=== PATIENT | female | born 1980 | race African-American/Black ===

== ENCOUNTER 2020-06-29 18:54 | Inpatient (IN) | payer OTHER ==
[2020-06-29 20:07] LABS: WHITE BLOOD COUNT 5.5 K/mm3 (4.0-10.8)
[2020-06-29 20:12] LABS: MCHC 29.1 g/dl (32.0-36.0); MEAN PLT VOLUME 7.8 fl (7.5-11.1); PLATELET COUNT 690 K/MM3 (134-434); RBC 3.43 M/mm3 (3.60-5.2); RDW 25.7 % (11.6-15.6)
[2020-06-29 20:13] LABS: MCH 17.2 pg (25.7-33.7)
[2020-06-29 20:16] LABS: ALBUMIN 3.6 g/dl (3.4-5.0); BILIRUBIN,TOTAL 0.5 mg/dl (0.2-1); CALCIUM 8.9 mg/dl (8.5-10); CREATININE 0.5 mg/dl (0.55-1.3); POTASSIUM 4.1 mmol/L (3.5-5.1); TOT PROT 7.4 g/dl (6.4-8.2)
[2020-06-29 20:18] LABS: HEMOGLOBIN 5.9 GM/dl (10.7-15.3)
[2020-06-29 20:19] LABS: HEMATOCRIT 20.3 % (32.4-45.2)
--- NOTE | 2020-06-29 20:25 | PDOC ---
Documentation entered by James Tao SCRIBE, acting as scribe for Bianca Finley MD. Bianca Finley MD: This documentation has been prepared by the sharifae, James Tao SCRIBE, under my direction and personally reviewed by me in its entirety. I confirm that the documentation accurately reflects all work, treatment, procedures, and medical decision making performed by me. History of Present Illness - General Chief Complaint: Blood Transfusion Stated Complaint: BLOOD TRANSFUSION History Source: Patient Exam Limitations: No Limitations - History of Present Illness Initial Comments: 06/29/20 19:35 The patient is a 40 year old female with a significant past medical history of anemia who presents to the ED sent from her PCP (Dr. Gonzalez) for evaluation of laboratory findings including 6.1 hemoglobin. The patient notes going to her PCP for her annual physical on when her blood was drawn. Prior to , her most recent annual physical was two years ago. The patient reports associated fatigue, shortness of breath, vertigo, nausea, and ringing ears after walking one block which varies from her baseline. The patient is currently asymptomatic. The patient denies chest pain and shortness of breath. Denies fever, chills an d/or any GI symptoms. Denies any symptoms. Denies any other symptoms. PAST MEDICAL HISTORY: anemia PAST SURGICAL HISTORY: no significant history FAMILY HISTORY: no pertinent history SOCIAL HISTORY: Pt lives with family and is employed. MEDICATIONS: reviewed ALLERGIES: As per nursing notes PCP: Dr. Gonzalez ([facility]) Review of Systems General: +fatigue No fevers or chills, no weakness, no weight loss HEENT: No change in vision. No sore throat. No ear pain CardioVascular: No chest pain or shortness of breath Respiratory: +dyspnea on exertion No cough, or wheezing. Gastrointestinal: +nausea No vomiting, diarrhea or constipation, No rectal bleeding Genitourinary: No dysuria, hematuria, or frequency Musculoskeletal: No joint or muscle pain or swelling Neurologic: +vertigo, ringing ears No headache or loss of consciousness Psychiatric: nor depression Skin: No rashes or easy bruising Endocrine: no increased thirst or abnormal weight change Allergic: no skin or latex allergy All other systems reviewed and normal Physical Exam General: Well-nourished well-developed individual, no acute distress HEENT: Throat: Normal, tonsils normal, no erythema or exudate Neck: Supple, no meningeal signs, no lymphadenopathy Eyes: Pupils equal reactive and round, extraocular motion intact Chest: Nontender to palpation Cardiac: S1-S2 normal, regular rate and rhythm, no murmurs rubs or gallops Respiratory: Lungs clear to auscultation bilateral Abdomen: Soft, nondistended, normal bowel sounds, nontender to palpation diffusely Extremities: Warm, dry, no cyanosis, clubbing, or edema Skin: No rashes Neuro: Alert and oriented x3, nonfocal exam, grossly intact, normal gait Psych: Normal mood and affect 06/29/20 20:23 Assessment and plan: This is a 40-year-old female comes in complaining of feeling fatigue and dyspnea with exertion. Patient went to her PMD and was told that she had a hemoglobin of 6. Here in the emergency room patient's hemoglobin is 5.9. Patient will be admitted for transfusion and further evaluation and work-up of her anemia. Past History - Medical History Allergies/Adverse Reactions: Allergies Allergy/AdvReac Type Severity Reaction Status Date / Time No Known Allergies Allergy Verified 06/29/20 19:05 Home Medications: Ambulatory Orders Dextroamphetamine/Amphetamine [Adderall 10 mg Tablet] 20 mg PO DAILY 06/29/20 COPD: No Disorders: Yes (FIBROID) - Reproductive History Is Patient Now?: No - Psycho-Social/Smoking History Smoking History: Never smoked - Substance Abuse Hx (Audit-C & DAST Scrn) How often the patient has a drink containing alcohol: 2-4 times / month How often the patient has six or more drinks on one occasion: Never Score: In Men: 4 or > Positive; In Women: 3 or > Positive: 2 Screen Result (Pos requires Nsg. Audit-10AR): Negative In the last yr the pt used illegal drug/Rx for NonMed reason: No Score: Yes response is considered Positive: 0 Screen Result (Positive result requires Nsg. DAST-10): Negative *Physical Exam - Vital Signs Last Vital Signs Temp Pulse Resp BP Pulse Ox 98.8 F 73 15 103/59 L 100 06/29/20 18:57 06/29/20 18:57 06/29/20 18:57 06/29/20 18:57 06/29/20 18:57 ED Treatment Course - LABORATORY CBC & Chemistry Diagram: 06/29/20 19:50 06/29/20 19:50 Discharge - Discharge Information Problems reviewed: Yes Clinical Impression/Diagnosis: Symptomatic anemia Condition: Good Disposition: HOME - Admission Yes - Follow up/Referral - Patient Discharge Instructions - Post Discharge Activity
[2020-06-29 20:35] LABS: ANISOCYTOSIS 3+; OVALOCYTE 1+
[2020-06-29 20:36] LABS: PLATELET ESTIMATE INCREASED
--- NOTE | 2020-06-29 20:39 | HP ---
CHIEF COMPLAINT: fatigue, forgetfullness, shortness of breath, dizziness and chest pain PCP: Dr. Gonzalez ([facility]) HISTORY OF PRESENT ILLNESS: 40 year old female with a past medical history of anemia and heavy menstrual bleeding who presents to the ED sent from her PCP (Dr. Gonzalez) for evaluation of laboratory findings with a hemoglobin of 6.1. Patient went to her PCP for her annual physical on when her blood was drawn. She reports having heavy periods. She denies having hematuria or rectal bleeding . Patient reports associated fatigue, shortness of breath, vertigo, nausea, and ringing ears after walking one block which varies from her baseline. She denies weight loss or syncopy. She reports she has not been taking iron tablets on a daily basis as instructed to. ER course labs notable for: hemoglobin 5.9, hematocrit 20.3, MCV 59, MCH 17.2, RDW 25.7 ,and platelets 690 Recent Travel: no PAST MEDICAL HISTORY: anemia PAST SURGICAL HISTORY: none Social History: Smoking:no Alcohol:no Drugs: no Family History : noncontributory Allergies No Known Allergies Allergy (Verified 06/29/20 19:05) HOME MEDICATIONS: Home Medications Medication Instructions Recorded Dextroamphetamine/Amphetamine 20 mg PO DAILY 06/29/20 [Adderall 10 mg Tablet] REVIEW OF SYSTEMS CONSTITUTIONAL: Absent: fever, chills, diaphoresis, fatgue, generalized weakness, malaise, loss of appetite, weight gain HEENT: Absent: rhinorrhea, nasal congestion, throat pain, throat swelling, difficulty swallowing, mouth swelling, ear pain, eye pain, visual changes CARDIOVASCULAR: Absent: chest pain, syncope, palpitations, irregular heart rate, lightheadedness, peripheral edema RESPIRATORY: Absent: cough, shortness of breath, dyspnea with exertion, orthopnea, wheezing, stridor, hemoptysis GASTROINTESTINAL: Absent: abdominal pain, abdominal distension, nausea, vomiting, diarrhea, constipation, melena, hematochezia GENITOURINARY: Absent: dysuria, frequency, urgency, hesitancy, hematuria, flank pain, genital pain MUSCULOSKELETAL: Absent: myalgia, arthralgia, joint swelling, back pain, neck pain SKIN: Absent: rash, itching, pallor HEMATOLOGIC/IMMUNOLOGIC: Absent: easy bleeding, easy bruising, lymphadenopathy, frequent infections, heavy periods ENDOCRINE: Absent: unexplained weight gain, unexplained weight loss, heat intolerance, cold intolerance NEUROLOGIC: Absent: headache, focal weakness or paresthesias, dizziness, unsteady gait, seizure, mental status changes, bladder or bowel incontinence PSYCHIATRIC: Absent: anxiety, depression, suicidal or homicidal ideation, hallucinations. PHYSICAL EXAMINATION Vital Signs - 24 hr 06/29/20 18:57 Temperature 98.8 F Pulse Rate 73 Respiratory 15 Rate Blood Pressure 103/59 L O2 Sat by Pulse 100 Oximetry (%) General no acute distress Vital signs reviewed afebrile bp stable Neuro no focal deficits Neck no JVD Lungs CTA nonlabored breathing effort no rales no wheezing Heart s1s2 rate regular and normal no murmurs auscultated Abdomen soft nontender nondistended Extremities warm to touch no pitting edema no cyanosis Mood calm Laboratory Results - last 24 hr 06/29/20 06/29/20 06/29/20 19:50 19:50 19:50 WBC 5.5 RBC 3.43 L Hgb 5.9 L* Hct 20.3 L MCV 59.0 L MCH 17.2 L MCHC 29.1 L RDW 25.7 H Plt Count 690 H MPV 7.8 Neutrophils % No Result Required. Neutrophils % (Manual) 59.0 Band Neutrophils % 1.0 Lymphocytes % No Result Required. Lymphocytes % (Manual) 32.0 Monocytes % (Manual) 4 Eosinophils % (Manual) 4.0 Hypochromia 3+ Platelet Estimate Increased Platelet Comment Moderate large plate Anisocytosis 3+ Microcytosis 3+ Ovalocytes 1+ Schistocytes 2+ Sodium 135 L Potassium 4.1 Chloride 103 Carbon Dioxide 23 Anion Gap 9 BUN 18.0 Creatinine 0.5 L Est GFR (CKD-EPI)AfAm 140.31 Est GFR (CKD-EPI)NonAf 121.06 Random Glucose 103 Calcium 8.9 Total Bilirubin 0.5 AST 18 ALT 12 L Alkaline Phosphatase 34 L Creatine Kinase 41 Troponin I < 0.03 Total Protein 7.4 Albumin 3.6 Crossmatch 06/29/20 19:50 WBC RBC Hgb Hct MCV MCH MCHC RDW Plt Count MPV Neutrophils % Neutrophils % (Manual) Band Neutrophils % Lymphocytes % Lymphocytes % (Manual) Monocytes % (Manual) Eosinophils % (Manual) Hypochromia Platelet Estimate Platelet Comment Anisocytosis Microcytosis Ovalocytes Schistocytes Sodium Potassium Chloride Carbon Dioxide Anion Gap BUN Creatinine Est GFR (CKD-EPI)AfAm Est GFR (CKD-EPI)NonAf Random Glucose Calcium Total Bilirubin AST ALT Alkaline Phosphatase Creatine Kinase Troponin I Total Protein Albumin Crossmatch See Detail ASSESSMENT/PLAN: In summary this is a 40 year old female with a past medical history of anemia and heavy menstrual bleeding who presented from PCP office for symptomatic anemia with shortness of breath, fatigue and chest pain. She was found to have severe anemia and thrombocytosis.She is being admitted to the Medicine service for further medical management and evaluation. #1 Symptomatic Anemia/Thrombocytosis hemoglobin 5.9, hematocrit 20.3, MCV 59, MCH 17.2, RDW 25.7 ,and platelets 690 blood pressure ranges low normal at baseline receiving 2 Units PRBC's repeat CBC in am check iron studies, B12 and folate check nazia guaiac c/w ferrous sulfate avoid asa/NSAID's Hematology consulted - Dr. Rahman #2 R/O COVID low risk follow up on COVID test sent 06/29 FEN no IV fluids indicated, receiving blood products BMP daily regular diet DVT Prophylaxis low risk Visit type - Emergency Visit Emergency Visit: Yes ED Registration Date: 06/29/20 Care time: The patient presented to the Emergency Department on the above date and was hospitalized for further evaluation of their emergent condition. - New Patient This patient is new to me today: Yes Date on this admission: 06/30/20 - Critical Care Critical Care patient: No
[2020-06-29 22:52] VITALS: BMI 22.5
[2020-06-30 08:16] LABS: CALCIUM 8.4 mg/dl (8.5-10); CREATININE 0.5 mg/dl (0.55-1.3); MAGNESIUM 2.1 mg/dL (1.8-2.4); POTASSIUM 3.8 mmol/L (3.5-5.1)
[2020-06-30 08:20] LABS: HEMATOCRIT 25.1 % (32.4-45.2); MCHC 29.4 g/dl (32.0-36.0); MEAN PLT VOLUME 8.8 fl (7.5-11.1); PLATELET COUNT 627 K/MM3 (134-434); RBC 3.86 M/mm3 (3.60-5.2); RDW 32.2 % (11.6-15.6); WHITE BLOOD COUNT 3.8 K/mm3 (4.0-10.8)
[2020-06-30 08:52] LABS: MCH 19.1 pg (25.7-33.7)
[2020-06-30 08:54] LABS: HEMOGLOBIN 7.4 GM/dl (10.7-15.3)
[2020-06-30] MEDS: FERROUS SO4 325 MG TABLET (FP) PO SCH ×2 (09:34→22:44)
--- NOTE | 2020-06-30 09:55 | PN ---
Physical Exam: SUBJECTIVE: Patient seen and examined at bedside. Obtained following additional PMH: ; has been followed x 2 years at [facility], Dr. Ivone Hernández, for fibroid(s); has surgical consult scheduled for 07/02; LMP 05/30/20 OBJECTIVE: Vital Signs Period Temp Pulse Resp BP Sys/Thao Pulse Ox Last 24 Hr 98.3 F-98.9 F 73-95 15-18 101-115/59-75 99-100 GENERAL: The patient is awake, alert, and fully oriented, in no acute distress. HEAD: Normal with no signs of trauma. EYES: PERRL, extraocular movements intact, sclera anicteric, conjunctiva clear. No ptosis. LUNGS: Breath sounds equal, clear to auscultation bilaterally, no wheezes, no crackles, no accessory muscle use. HEART: Regular rate and rhythm, S1, S2 without murmur, rub or gallop. ABDOMEN: Large protruding mass left side of abdomen g~14cm in diameter, not tender EXTREMITIES: 2+ pulses, warm, well-perfused, no edema. NEUROLOGICAL: Cranial nerves II through XII grossly intact. Normal speech, self- positions easily Laboratory Results - last 24 hr 06/29/20 06/29/20 06/29/20 19:50 19:50 19:50 WBC 5.5 RBC 3.43 L Hgb 5.9 L* Hct 20.3 L MCV 59.0 L MCH 17.2 L MCHC 29.1 L RDW 25.7 H Plt Count 690 H MPV 7.8 Neutrophils % No Result Required. Neutrophils % (Manual) 59.0 Band Neutrophils % 1.0 Lymphocytes % No Result Required. Lymphocytes % (Manual) 32.0 Monocytes % (Manual) 4 Eosinophils % (Manual) 4.0 Hypochromia 3+ Platelet Estimate Increased Platelet Comment Moderate large plate Anisocytosis 3+ Microcytosis 3+ Ovalocytes 1+ Schistocytes 2+ Sodium 135 L Potassium 4.1 Chloride 103 Carbon Dioxide 23 Anion Gap 9 BUN 18.0 Creatinine 0.5 L Est GFR (CKD-EPI)AfAm 140.31 Est GFR (CKD-EPI)NonAf 121.06 Random Glucose 103 Calcium 8.9 Magnesium Total Bilirubin 0.5 AST 18 ALT 12 L Alkaline Phosphatase 34 L Creatine Kinase 41 Troponin I < 0.03 Total Protein 7.4 Albumin 3.6 Blood Type Antibody Screen Crossmatch 06/29/20 06/29/20 06/30/20 19:50 19:55 07:31 WBC 3.8 L RBC 3.86 Hgb 7.4 L Hct 25.1 L D MCV 65.0 L MCH 19.1 L MCHC 29.4 L RDW 32.2 H Plt Count 627 H MPV 8.8 Neutrophils % Neutrophils % (Manual) Band Neutrophils % Lymphocytes % Lymphocytes % (Manual) Monocytes % (Manual) Eosinophils % (Manual) Hypochromia Platelet Estimate Platelet Comment Anisocytosis Microcytosis Ovalocytes Schistocytes Sodium Potassium Chloride Carbon Dioxide Anion Gap BUN Creatinine Est GFR (CKD-EPI)AfAm Est GFR (CKD-EPI)NonAf Random Glucose Calcium Magnesium Total Bilirubin AST ALT Alkaline Phosphatase Creatine Kinase Troponin I Total Protein Albumin Blood Type B POSITIVE B POSITIVE Antibody Screen Negative Crossmatch See Detail 06/30/20 07:31 WBC RBC Hgb Hct MCV MCH MCHC RDW Plt Count MPV Neutrophils % Neutrophils % (Manual) Band Neutrophils % Lymphocytes % Lymphocytes % (Manual) Monocytes % (Manual) Eosinophils % (Manual) Hypochromia Platelet Estimate Platelet Comment Anisocytosis Microcytosis Ovalocytes Schistocytes Sodium 135 L Potassium 3.8 Chloride 107 Carbon Dioxide 21 Anion Gap 7 L BUN 11.0 Creatinine 0.5 L Est GFR (CKD-EPI)AfAm 140.31 Est GFR (CKD-EPI)NonAf 121.06 Random Glucose 94 Calcium 8.4 L Magnesium 2.1 Total Bilirubin AST ALT Alkaline Phosphatase Creatine Kinase Troponin I Total Protein Albumin Blood Type Antibody Screen Crossmatch Active Medications Generic Name Dose Route Start Last Admin Trade Name Scoutq PRN Reason Stop Dose Admin Ferrous Sulfate 325 mg 06/30/20 10:00 06/30/20 09:34 Feosol - PO 325 mg BID GARY Administration Non-Formulary Medication 20 mg 06/30/20 10:00 Dextroamphetamine/Amphetamine [Adderall 10 Mg Tablet] PO DAILY [facility] ASSESSMENT/PLAN 40 year-old female with a PMH significant for uterine fibroids, hemorrhagia, and microcytic anemia. Admitted for symptomatic microcytic anemia. Severe iron-deficiency anemia Thrombocytosis --transfused 2U PRBC overnight, Hgb 5.9-->7.4 --symptoms improved, able to ambulate with SOB --heme consult pending --iron supplements FEN Fluids: PO intake adequate Electrolytes: replete as indicated Nutrition: regular diet DVT prophylaxis: no chemical prophylaxis due to bleeding issues; oob, ambulation Visit type - Emergency Visit Emergency Visit: Yes ED Registration Date: 06/29/20 Care time: The patient presented to the Emergency Department on the above date and was hospitalized for further evaluation of their emergent condition. - New Patient This patient is new to me today: Yes Date on this admission: 07/01/20 - Critical Care Critical Care patient: No
[2020-06-30] MEDS ORDERED: PATIENT'S OWN MEDICATION (NON-FORMULARY) (Dextroamphetamine/Amphetamine [Adderall 10 Mg Ta PO SCH (10:00)
--- NOTE | 2020-06-30 10:28 | EKG ---
Test Reason : Blood Pressure : / mmHG Vent. Rate : 091 BPM Atrial Rate : 091 BPM P-R Int : 152 ms QRS Dur : 068 ms QT Int : 364 ms P-R-T Axes : 054 051 048 degrees QTc Int : 447 ms NORMAL SINUS RHYTHM NORMAL ECG NO PREVIOUS ECGS AVAILABLE Confirmed by MD Naga, Austin ([id number]) on 06/30/2020 10:28:09 AM Referred By: John BASHIR Confirmed By:Austin Nielson MD
--- NOTE | 2020-06-30 23:31 | CONSULT ---
Consult Consult Specialty:: heme Reason for Consultation:: t-cytosis - History of Present Illness Chief Complaint: ref for anemia noted at pcp office History of Present Illness: pt notes heavy menses over past 3 yrs and told of large fibroids no transfusion No iron infusions. occas takes iron supplement, but notwell- tolerated consumes reg diet fatigued and notes she tends to ascribe sxs to use of addarol no pica admits to poor f/u w her doctors no known h/o elev plts no thromboses - History Source History Provided By: Patient, Medical Record - Past Medical History Reproductive: Yes: Fibroids ...LMP: 05/30/20 ...: No - Smoking History Smoking history: Never smoked Home Medications - Allergies Allergies/Adverse Reactions: Allergies Allergy/AdvReac Type Severity Reaction Status Date / Time No Known Allergies Allergy Verified 06/29/20 19:05 - Home Medications Home Medications: Ambulatory Orders Dextroamphetamine/Amphetamine [Adderall 10 mg Tablet] 20 mg PO DAILY 06/29/20 Physical Exam Vital Signs: Vital Signs Temperature 98.9 F 06/30/20 22:00 Pulse Rate 80 06/30/20 22:00 Respiratory Rate 18 06/30/20 22:00 Blood Pressure 100/68 06/30/20 22:00 O2 Sat by Pulse Oximetry (%) 100 06/30/20 22:00 Constitutional: Yes: Well Nourished HENT: Yes: WNL Neck: Yes: Supple Cardiovascular: Yes: Regular Rate and Rhythm Respiratory: Yes: CTA Bilaterally Gastrointestinal: Yes: Normal Bowel Sounds, Soft, Other (pelvic central mass c/w known fibroid) Extremities: Yes: WNL Edema: No Edema: LLE: Trace Integumentary: Yes: WNL Labs: CBC, BMP 06/30/20 07:31 06/30/20 07:31 Assessment/Plan severe microcytic anemia reflecting iron def, bkd menorrhagia t-cytosis related to iron def response to tranfusion would give iron infusion while hospitalized encouraged to f/u shortly w her pcp for contd monitoring and iron infusions she resides in [place] and notes she will f/u w her pcp in [facility]. also has upcoming curatorial specialist appt
[2020-07-01 07:59] LABS: HEMATOCRIT 26.6 % (32.4-45.2); MCHC 30.2 g/dl (32.0-36.0); MEAN PLT VOLUME 7.9 fl (7.5-11.1); PLATELET COUNT 489 K/MM3 (134-434); RBC 4.09 M/mm3 (3.60-5.2); RDW 30.7 % (11.6-15.6); WHITE BLOOD COUNT 4.5 K/mm3 (4.0-10.8)
[2020-07-01] MEDS ORDERED: IRON SUCROSE INJECTION 200 MG in SODIUM CHLORIDE 100 ML IVPB ONE (08:10)
[2020-07-01 08:12] LABS: ALBUMIN 3.5 g/dl (3.4-5.0); BILIRUBIN,TOTAL 0.6 mg/dl (0.2-1); CALCIUM 8.8 mg/dl (8.5-10); CREATININE 0.5 mg/dl (0.55-1.3); POTASSIUM 4.1 mmol/L (3.5-5.1); TOT PROT 7.1 g/dl (6.4-8.2)
[2020-07-01 08:20] LABS: ADD RBC MORPHOLOGY YES; MCH 19.6 pg (25.7-33.7)
[2020-07-01 09:02] LABS: ANISOCYTOSIS 2+
[2020-07-01 09:03] LABS: PLATELET ESTIMATE SLT INCREASE
[2020-07-01] MEDS: FERROUS SO4 325 MG TABLET (FP) PO SCH (09:39)
[2020-07-01] MEDS ORDERED: DOCUSATE SODIUM 100 MG CAPSULE (FP) PO SCH (10:00)
--- NOTE | 2020-07-01 11:35 | DS ---
Physical Exam: SUBJECTIVE: Patient seen and examined. Feeling much better. Did 100 jumping jacks this morning! OBJECTIVE: Vital Signs Period Temp Pulse Resp BP Sys/Thao Pulse Ox Last 24 Hr 98.0 F-98.9 F 72-100 16-18 95-118/59-81 94-100 PHYSICAL EXAM GENERAL: The patient is awake, alert, and fully oriented, in no acute distress. HEAD: Normal with no signs of trauma. EYES: PERRL, extraocular movements intact, sclera anicteric, conjunctiva clear. No ptosis. LUNGS: Breath sounds equal, clear to auscultation bilaterally, no wheezes, no crackles, no accessory muscle use. HEART: Regular rate and rhythm, S1, S2 without murmur, rub or gallop. ABDOMEN: Large protruding mass left side of abdomen g~14cm in diameter, not tender EXTREMITIES: 2+ pulses, warm, well-perfused, no edema. NEUROLOGICAL: Cranial nerves II through XII grossly intact. Normal speech. LABS Laboratory Results - last 24 hr 06/29/20 06/30/20 06/30/20 20:30 07:31 17:34 WBC RBC Hgb Hct MCV MCH MCHC RDW Plt Count MPV Neutrophils % Neutrophils % (Manual) Lymphocytes % Lymphocytes % (Manual) Monocytes % (Manual) Hypochromia Platelet Estimate Poikilocytosis Anisocytosis Microcytosis Sodium 135 L Potassium 3.8 Chloride 107 Carbon Dioxide 21 Anion Gap 7 L BUN 11.0 Creatinine 0.5 L Est GFR (CKD-EPI)AfAm 140.31 Est GFR (CKD-EPI)NonAf 121.06 Random Glucose 94 Calcium 8.4 L Magnesium 2.1 Iron 26 L TIBC 347 Iron Saturation 7 L Unsaturated IBC 321 H Ferritin 1.6 L Total Bilirubin AST ALT Alkaline Phosphatase Total Protein Albumin Stool Occult Blood Negative COVID-19 ([facility]) Not detected 07/01/20 07/01/20 07:11 07:11 WBC 4.5 RBC 4.09 Hgb 8.0 L Hct 26.6 L MCV 65.0 L MCH 19.6 L MCHC 30.2 L RDW 30.7 H Plt Count 489 H MPV 7.9 Neutrophils % No Result Required. Neutrophils % (Manual) 53.0 Lymphocytes % No Result Required. Lymphocytes % (Manual) 43.0 H Monocytes % (Manual) 4 Hypochromia 3+ Platelet Estimate Slt increase Poikilocytosis 1+ Anisocytosis 2+ Microcytosis 2+ Sodium 134 L Potassium 4.1 Chloride 105 Carbon Dioxide 21 Anion Gap 8 BUN 12.0 Creatinine 0.5 L Est GFR (CKD-EPI)AfAm 140.31 Est GFR (CKD-EPI)NonAf 121.06 Random Glucose 95 Calcium 8.8 Magnesium 2.0 Iron TIBC Iron Saturation Unsaturated IBC Ferritin Total Bilirubin 0.6 AST 14 L ALT 10 L Alkaline Phosphatase 31 L Total Protein 7.1 Albumin 3.5 Stool Occult Blood COVID-19 ([facility]) HOSPITAL COURSE: Date of Admission:06/29/20 Date of Discharge: 07/01/20 Pre hospital course 40 year old female with a past medical history of anemia and heavy menstrual bleeding who presents to the ED sent from her PCP (Dr. Gonzalez) for evaluation of laboratory findings with a hemoglobin of 6.1. Patient went to her PCP for her annual physical on when her blood was drawn. She reports having heavy periods. She denies having hematuria or rectal bleeding . Patient reports associated fatigue, shortness of breath, vertigo, nausea, and ringing ears after walking one block which varies from her baseline. She denies weight loss or syncopy. She reports she has not been taking iron tablets on a daily basis as instructed to. ER course hemoglobin 5.9, hematocrit 20.3, MCV 59, MCH 17.2, RDW 25.7 ,and platelets 690 Subsequent hospital course 40 year-old female with a PMH significant for uterine fibroids, hemorrhagia, and microcytic anemia. Admitted for symptomatic microcytic anemia. Severe microcytic iron-deficiency anemia Thrombocytosis secondary to iron-deficiency anemia --transfused 2U PRBC, Hgb 5.9-->7.4-->8.0 with resolution of symptoms --venofer x 1 given prior to discharge --seen and evaluated by hematology --continue iron supplementation --has appointment with [facility] [employer] surgeon this afternoon Minutes to complete discharge: 35 Discharge Summary Problems reviewed: Yes Reason For Visit: BLOOD TRANSFUSION/SIGNS ND SYMPTOMS OF ANEMIA Current Active Problems Symptomatic anemia (Acute) Condition: Improved - Instructions Diet, Activity, Other Instructions: A prescription has been sent to your pharmacy for ferrous sulfate (iron supplement). Take this medication as directed. Disposition: HOME - Home Medications Comprehensive Discharge Medication List: Ambulatory Orders Dextroamphetamine/Amphetamine [Adderall 10 mg Tablet] 20 mg PO DAILY 06/29/20 Ferrous Sulfate [Feosol] 325 mg PO BID #60 [id number] 07/01/20 This patient is new to me today: No Emergency Visit: Yes ED Registration Date: 06/29/20 Care time: The patient presented to the Emergency Department on the above date and was hospitalized for further evaluation of their emergent condition. Critical Care patient: No - Discharge Referral [facility] Med [facility] No
[2020-07-01 16:30] VITALS: BP 110/68; PULSE 79; TEMP 98.7
== END 2020-07-01 14:55 | disposition home or self-care (01) | DRG 663 ==
LOC: FER 18:54 → FM/S 20:25
PROVIDERS: ADMIT Internal Medicine; ATTEND Nurse Practitioner Acute Care
PROC: 30233N1 Transfusion of Nonautologous Red Blood Cells into Peripheral Vein, Percutaneous Approach (ICD-10-PCS; principal; 2020-06-29)
DX: D50.9 Iron deficiency anemia, unspecified (principal); D47.3 Essential (hemorrhagic) thrombocythemia; D25.9 Leiomyoma of uterus, unspecified
CPT/HCPCS: 36415; 36430; 36511; 71045-TC-FY; 80048; 80053; 82272; 82550; 82607; 82728; 83540; 83550; 83735; 84484; 85025; 85027; 86850; 86900; 86901; 86922; 93005; 99285-25; J1756; P9038; P9058; U0003